=== PATIENT | female | born 1955 | race Caucasian/White ===

== ENCOUNTER 2017-01-16 22:51 | Inpatient (IN) | payer OTHER ==
[~2017-01-16] VITALS: Ht 170.2 cm; Wt 103.7 kg
[2017-01-16 22:58] VITALS: BP 104/76; PULSE 130; RESP 20; TEMP 98.7; O2SAT 98
[2017-01-16] MEDS ORDERED: SODIUM CHLOR 0.9% 1000 ML INJ 1,000 ML IV SCH (23:29)
[2017-01-16] MEDS ORDERED: SODIUM CHLOR 0.9% 1000 ML INJ 1,000 ML IV ONE (23:30)
[2017-01-16] MEDS ORDERED: ONDANSETRON HCL 4 MG/2 ML VIAL IV PUSH ONE (23:30)
[2017-01-16] MEDS ORDERED: ONDANSETRON HCL 4 MG/2 ML VIAL IVP ONE (23:30)
[2017-01-16] MEDS ORDERED: SODIUM CHLORIDE 0.9% FLUSH 5 ML FLUSH IVF PRN (23:30)
--- NOTE | 2017-01-16 23:38 | PD ---
HPI Chief Complaint: Abdominal Pain Time Seen by Provider: 23:29 Travel History International Travel<30 days: No Contact w/Intl Traveler<30days: No Traveled to known affect area: No History of Present Illness HPI 61-year-old female presents to the emergency department by private transportation the care of her spouse for complaint of progressively worsening severe abdominal pain since 6 PM. Patient states abdominal pain sudden onset. Patient states pain does radiate around to the back. Patient's had nausea without vomiting. Patient's had chills without fever. Patient denies any chest pain or recent respiratory illness. No cough or congestion; patient does note shortness of breath associated with pain in activity. Patient is status post cholecystectomy and hysterectomy. Patient takes no prescription medications on a regular basis; does take ibuprofen daily. No hematemesis no coffee-ground emesis no melena or hematochezia. Patient denies any dysuria frequency urgency or hematuria. No syncope or near syncope. Patient denies personal history of CAD hypertension dyslipidemia diabetes peptic ulcer disease aortic disease kidney stones or similar abdominal pain. Patient does have colonoscopies every 3 months due to frequent polyposis/familial polyposis status post for precancerous. Patient is also "has a steel plate in her head" from previous craniotomy. PFSH Past Medical History Narrative Medical Familial polyposis colonoscopy polypectomy Hysterectomy cholecystectomy craniotomy-padget's; no tobacco use and alcohol use; nursing notes reviewed Diminished Hearing: No Gastrointestinal Disorders: Yes (COLON POLYPS) Tetanus Vaccination: Unknown Influenza Vaccination: Yes ?: Not Past Surgical History Cholecystectomy: Yes Gynecologic Surgery: Yes (HYSTERECTOMY) Hysterectomy: Yes Social History Alcohol Use: No Tobacco Use: No Substance Use: No Allergies-Medications (Allergen,Severity, Reaction): Coded Allergies: No Known Allergies (Unverified , 01/16/17) Reported Meds & Prescriptions Reported Meds & Active Scripts Active No Active Prescriptions or Reported Medications Narrative Medication Ibuprofen Review of Systems Except as stated in HPI: all other systems reviewed are Neg General / Constitutional: Positive: Chills, No: Fever HENT: No: Congestion Cardiovascular: Positive: Diaphoresis, No: Chest Pain or Discomfort Respiratory: No: Shortness of Breath Gastrointestinal: Positive: Nausea, Abdominal Pain, No: Vomiting, Diarrhea, Hematemesis, Hematochezia Genitourinary: No: Dysuria, Flank Pain Musculoskeletal: No: Myalgias, Arthralgias Skin: No Rash Neurologic: No: Weakness (tenderness) Psychiatric: No: Anxiety Endocrine: No: Heat Intolerance Hematologic/Lymphatic: No: Easy Bruising Physical Exam Narrative GENERAL: Well-developed ill-appearing female in no respiratory distress diaphoretic without pallor SKIN: Warm and diaphoretic. HEAD: Atraumatic. Normocephalic. EYES: Pupils equal and round. No scleral icterus. No injection or drainage. ENT: No nasal bleeding or discharge. Mucous membranes pink and moist. NECK: Trachea midline. No JVD. CARDIOVASCULAR: Regular rate and rhythm. RESPIRATORY: No accessory muscle use. Clear to auscultation. Breath sounds equal bilaterally. GASTROINTESTINAL: Abdomen soft, diffusely tender without guarding or rebound, nondistended. Hepatic and splenic margins not palpable. No palpable pulsatile mass. MUSCULOSKELETAL: Extremities without clubbing, cyanosis, or edema. No obvious deformities. Bilateral radial and dorsalis pedis pulses bounding and 2+ NEUROLOGICAL: Awake and alert. No obvious cranial nerve deficits. Motor grossly within normal limits. Five out of 5 muscle strength in the arms and legs. Normal speech. PSYCHIATRIC: Appropriate mood and affect; insight and judgment normal. Data Data Last Documented VS Vital Signs Date Time Temp Pulse Resp B/P Pulse Ox O2 Delivery O2 Flow Rate FiO2 01/17/17 01:17 20 01/16/17 23:59 105 125/60 98 01/16/17 22:58 98.7 Orders Complete Blood Count With Diff (01/16/17 23:29) Comprehensive Metabolic Panel (01/16/17 23:29) Lipase (01/16/17 23:29) Lactic Acid (01/16/17 23:29) Prothrombin Time / Inr (Pt) (01/16/17 23:29) Act Partial Throm Time (Ptt) (01/16/17 23:29) Urinalysis - C+S If Indicated (01/16/17 23:29) Iv Access Insert/Monitor (01/16/17 23:29) Ecg Monitoring (01/16/17 23:29) Oximetry (01/16/17 23:29) Ondansetron Inj (Zofran Inj) (01/16/17 23:30) Sodium Chlor 0.9% 1000 Ml Inj (Ns 1000 M (01/16/17 23:29) Sodium Chloride 0.9% Flush (Ns Flush) (01/16/17 23:30) Electrocardiogram (01/16/17 23:29) Chest, Single Ap (01/16/17 23:29) Sodium Chlor 0.9% 1000 Ml Inj (Ns 1000 M (01/16/17 23:30) Ondansetron Inj (Zofran Inj) (01/16/17 23:30) Type And Screen (01/16/17 23:29) Troponin I (01/16/17 23:29) Ckmb (Isoenzyme) Profile (01/16/17 23:29) Blood Culture (01/16/17 23:29) Ct Abd/Pel W/O Iv Contrast (01/16/17 ) Morphine Inj (Morphine Inj) (01/16/17 23:45) Morphine Inj (Morphine Inj) (01/16/17 23:45) Piperacil-Tazo 4.5 Gm Premix (Zosyn 4.5 (01/16/17 23:45) Ondansetron Inj (Zofran Inj) (01/17/17 00:15) CKMB (01/16/17 23:30) CKMB% (01/16/17 23:30) Insert Temp Sensing Garcia Cath (01/17/17 00:35) Sodium Chlor 0.9% 1000 Ml Inj (Ns 1000 M (01/17/17 01:15) NPO (01/17/17 01:12) Admit Order (Ed Use Only) (01/17/17 ) ^ Saline Lock (01/17/17 01:13) Resp Oxygen Rafael C Titrat 1-4 L (01/17/17 ) ^ Notify Dr: Other (01/17/17 01:13) Sodium Chloride 0.9% Flush (Ns Flush) (01/17/17 09:00) Sodium Chloride 0.9% Flush (Ns Flush) (01/17/17 01:15) Piperacil-Tazo 3.375 Gm Premix (Zosyn 3. (01/17/17 06:00) ^ For Further Orders (01/17/17 01:13) Diet Npo (01/17/17 Breakfast) Labs Laboratory Tests Test 01/16/17 01/17/17 23:30 00:50 White Blood Count 10.2 TH/MM3 Red Blood Count 5.28 MIL/MM3 Hemoglobin 13.8 GM/DL Hematocrit 43.4 % Mean Corpuscular Volume 82.1 FL Mean Corpuscular Hemoglobin 26.2 PG Mean Corpuscular Hemoglobin 31.9 % Concent Red Cell Distribution Width 14.5 % Platelet Count 343 TH/MM3 Mean Platelet Volume 7.8 FL Neutrophils (%) (Auto) 73.0 % Lymphocytes (%) (Auto) 17.0 % Monocytes (%) (Auto) 8.9 % Eosinophils (%) (Auto) 0.2 % Basophils (%) (Auto) 0.9 % Neutrophils # (Auto) 7.5 TH/MM3 Lymphocytes # (Auto) 1.7 TH/MM3 Monocytes # (Auto) 0.9 TH/MM3 Eosinophils # (Auto) 0.0 TH/MM3 Basophils # (Auto) 0.1 TH/MM3 CBC Comment DIFF FINAL Differential Comment Prothrombin Time 11.3 SEC Prothromb Time International 1.0 RATIO Ratio Activated Partial 28.1 SEC Thromboplast Time Sodium Level 143 MEQ/L Potassium Level 3.8 MEQ/L Chloride Level 107 MEQ/L Carbon Dioxide Level 25.4 MEQ/L Anion Gap 11 MEQ/L Blood Urea Nitrogen 15 MG/DL Creatinine 0.77 MG/DL Estimat Glomerular Filtration 77 ML/MIN Rate Random Glucose 124 MG/DL Lactic Acid Level 1.6 mmol/L Calcium Level 8.8 MG/DL Total Bilirubin 1.0 MG/DL Aspartate Amino Transf 21 U/L (AST/SGOT) Alanine Aminotransferase 44 U/L (ALT/SGPT) Alkaline Phosphatase 77 U/L Total Creatine Kinase 128 U/L Creatine Kinase MB LESS THAN 0.5 NG/ML Troponin I LESS THAN 0.02 NG/ML Total Protein 8.1 GM/DL Albumin 3.7 GM/DL Lipase 91 U/L Blood Type O POSITIVE Antibody Screen NEGATIVE Blood Bank Comment Urine Color YELLOW Urine Turbidity CLEAR Urine pH 6.0 Urine Specific [place] 1.017 Urine Protein 30 mg/dL Urine Glucose (UA) NEG mg/dL Urine Ketones NEG mg/dL Urine Occult Blood NEG Urine Nitrite NEG Urine Bilirubin NEG Urine Leukocyte Esterase NEG Urine WBC 0-2 /hpf Urine Squamous Epithelial 0-5 /hpf Cells Urine Hyaline Casts 3-5 /lpf Urine Fine Granular Casts 3-5 /lpf Urine Mucus FEW /lpf Microscopic Urinalysis Comment CULT NOT INDICATED MDM Medical Decision Making Medical Screen Exam Complete: Yes Emergency Medical Condition: Yes Medical Record Reviewed: Yes Interpretation(s) EKG sinus tachycardia rate [address] elevation or injury pattern change or ectopy noted Vital Signs Date Time Temp Pulse Resp B/P Pulse Ox O2 Delivery O2 Flow Rate FiO2 01/17/17 00:12 20 01/16/17 23:59 105 20 125/60 98 01/16/17 22:58 98.7 130 20 104/76 98 CBC & BMP Diagram 01/16/17 23:30 Last Impressions Chest X-Ray 01/16/17 2329 Signed Impressions: Service Date/Time: Monday, January 16, 2017 23:40 - CONCLUSION: No acute disease. Yonny Andujar MD Abdomen/Pelvis CT 01/16/17 0000 Signed Impressions: Service Date/Time: Monday, January 16, 2017 23:45 - CONCLUSION: 1. Suspected appendicitis with a distended thickened appendix with internal calcification and surrounding inflammatory change and inflammatory change extending to the right paracolic gutter region and anterior mesentery with a mild amount of free fluid present. 2. Several small pulmonary nodules. These are nonspecific. 3. 1.7 cm hypodense mass in the liver likely related to a cyst or hemangioma statistically. Yonny Andujar MD Lactic acid: 1.6; repeat lactic acid: 2.9 Differential Diagnosis Abdominal pain, perforated viscus, ruptured abdominal aortic aneurysm, ischemic colitis, bowel obstruction, sepsis, ACS, [place] Narrative Course IV access obtained specimens collected and sent for resulting; stat CT abdomen and pelvis ordered Normal saline 2 L bolus ordered along with morphine sulfate 4 mg IV Zofran 4 mg IV; blood cultures obtained lactic acid obtained; in view of complaint of chills presumptive IV antibiotic administered @ 12:[address] --pain now 4/10 mild nausea; 1 LNS bolus infused At 1:[address] abdomen and pelvis resulted consistent with acute appendicitis with stranding and scant free fluid; this study is discussed with the on-call surgeon who requests patient be continued on IV Zosyn transferred to [facility] as she will need surgical intervention in the morning; discussed admission to ICU surgeon requests an additional liter bolus of normal saline admit to M/S. @ 3:25 AM increased abdominal tenderness with guarding and rebound and fever T: 101.6F with increasing second lactic acid; will upgrade admission to ICU Critical Care Narrative Aggregate critical care time was 40 minutes. Time to perform other separately billable procedures was not included in the critical care time. My time did not include minutes spent treating any other patients simultaneously or on activities that did not directly contribute to the patient's treatment. The services I provided to this patient were to treat and/or prevent clinically significant deterioration that could result in: Septic shock, cardiogenic shock , I provided critical care services requiring my management, as noted below: Chart data review, documentation time, medication orders and management, vital sign assessments/reviewing monitor data, ordering and reviewing lab tests, ordering and interpreting/reviewing x-rays and diagnostic studies, care of the patient and discussion of the patient with the admitting physicians. Sepsis Criteria SIRS Criteria (2 or more): Temp > 100.9 or < 96.8, Heart rate over 90 Sepsis Criteria (SIRS+source): Infect source susp/known Severe Sepsis (+one): Lactate >2 Physician Communication Physician Communication case discussed with DR Mcgill --admit to his service npo continue zosyn q 6 hours; case re-discussed with general surgeon aware --remains tachycardic HR 114 -122, bp 108/81 w elevated lactic acid; discussed with insurance manager Dr Braun Diagnosis Primary Impression: Appendicitis, acute Qualified Code: K35.2 - Acute appendicitis with generalized peritonitis Additional Impression: Sepsis Admitting Information Admitting Physician Requests: Admit Scripts No Active Prescriptions or Reported Meds Milana Silverman MD Jan 16, 2017 23:38
[2017-01-16] MEDS ORDERED: PIPERACIL-TAZO 4.5 GM PREMIX 100 ML IV ONE (23:45)
[2017-01-16] MEDS ORDERED: MORPHINE SULFATE 4 MG/ML INJ IV PUSH ONE ×2 (23:45)
[2017-01-16 23:59] VITALS: BP 125/60; PULSE 105; RESP 20; O2SAT 98
[2017-01-17] VITALS (16 sets, daily range): BP systolic 111–138; BP diastolic 51–76; PULSE 82–130; RESP 19–24; TEMP 98.3–101.6; O2SAT 95–99
[2017-01-17 00:14] LABS: CHLORIDE 107 MEQ/L (98-107); POTASSIUM 3.8 MEQ/L (3.5-5.1); SODIUM (NA) 143 MEQ/L (136-145)
[2017-01-17 00:15] LABS: AUTOMATED NEUTROPHIL # 7.5 TH/MM3 (1.8-7.7); BASOPHIL # 0.1 TH/MM3 (0-0.2); BASOPHIL % 0.9 % (0.0-2.0); EOSINOPHIL % 0.2 % (0.0-4.0); HEMATOCRIT 43.4 % (35.0-46.0); HEMO FLAGS DIFF FINAL; LYMPHOCYTE # 1.7 TH/MM3 (1.0-4.8); MEAN CELL VOLUME 82.1 FL (80.0-100.0); MEAN CORPUSCULAR HEMOGLOBIN 26.2 PG (27.0-34.0); MEAN CORPUSCULAR HGB CONC 31.9 % (32.0-36.0); MONO % 8.9 % (0.0-8.0); PLATELET COUNT 343 TH/MM3 (150-450); RED BLOOD COUNT 5.28 MIL/MM3 (4.00-5.30); RED CELL DISTRIBUTION WIDTH 14.5 % (11.6-17.2); WHITE BLOOD COUNT 10.2 TH/MM3 (4.0-11.0)
[2017-01-17] MEDS ORDERED: ONDANSETRON HCL 4 MG/2 ML VIAL IV PUSH ONE ×2 (00:15→10:28)
[2017-01-17 00:18] LABS: ANION GAP 11 MEQ/L (5-15); BICARBONATE 25.4 MEQ/L (21.0-32.0); BLOOD UREA NITROGEN 15 MG/DL (7-18)
[2017-01-17 00:21] LABS: ALT (GPT) 44 U/L (10-53); AST (GOT) 21 U/L (15-37); GLOMERULAR FILTRATION RATE 77 ML/MIN (>89)
[2017-01-17 00:23] LABS: APTT (PATIENT) 28.1 SEC (24.3-30.1); PROTHROMBIN TIME - PATIENT 11.3 SEC (9.8-11.6)
[2017-01-17 00:24] LABS: ALKALINE PHOSPHATASE 77 U/L (45-117); CREATINE KINASE 128 U/L (26-192)
[2017-01-17 00:36] LABS: CKMB LESS THAN 0.5 NG/ML (0.5-3.6)
--- NOTE | 2017-01-17 00:46 | RADHPO ---
EXAM DATE/TIME: 01/16/2017 23:45 [facility] COMPARISON: No previous studies available for comparison. INDICATIONS : Abdominal pain. Nausea. ORAL CONTRAST: No oral contrast ingested. RADIATION DOSE: 22.37 CTDIvol (mGy) MEDICAL HISTORY : None SURGICAL HISTORY : Cholecystectomy. Hysterectomy. ENCOUNTER: Initial ACUITY: 1 day PAIN SCALE: 10/10 LOCATION: Bilateral Abdomen and pelvis. TECHNIQUE: Volumetric scanning of the abdomen and pelvis was performed. Using automated exposure control and ad justment of the mA and/or kV according to patient size, radiation dose was kept as low as reasonably achievable to obtain optimal diagnostic quality images. FINDINGS: LOWER LUNGS: There are several small less than 5 mm pulmonary nodules seen. LIVER: There is a 1.7 cm hypodensity in the anterior aspect of the liver. Statistically, this likely represe nts a cyst or hemangioma. The patient is status post cholecystectomy. SPLEEN: Normal size without lesion. PANCREAS: Within normal limits. KIDNEYS: Normal in size and shape. There is no mass, stone, or hydronephrosis. ADRENAL GLANDS: Within normal limits. VASCULAR: There is no aortic aneurysm. BOWEL/MESENTERY: There is a dilated tubular structure seen at the inferior aspect of the cecum with internal calcifica tions likely into an enlarged appendix with surrounding inflammatory change. There is inflammatory ch rosalva extending into the right paracolic gutter and into the anterior mesentery. There is a mild amoun t of free fluid seen in the cul-de-sac. ABDOMINAL WALL: Within normal limits. RETROPERITONEUM: There is no lymphadenopathy. BLADDER: No wall thickening or mass. REPRODUCTIVE: Within normal limits. INGUINAL: There is no lymphadenopathy or hernia. MUSCULOSKELETAL: Within normal limits for patient age. CONCLUSION: 1. Suspected appendicitis with a distended thickened appendix with internal calcification and surroun ding inflammatory change and inflammatory change extending to the right paracolic gutter region and a nterior mesentery with a mild amount of free fluid present. 2. Several small pulmonary nodules. These are nonspecific. 3. 1.7 cm hypodense mass in the liver likely related to a cyst or hemangioma statistically. Yonny Andujar MD on January 17, 2017 at 0:39 Board Certified Radiologist. This report was verified electronically.
--- NOTE | 2017-01-17 00:46 | RADHPO ---
EXAM DATE/TIME: 01/16/2017 23:40 [facility] COMPARISON: No previous studies available for comparison. INDICATIONS : Chest and abdominal pain. MEDICAL HISTORY : None. SURGICAL HISTORY : None. ENCOUNTER: Initial ACUITY: 1 day PAIN SCORE: 10/10 LOCATION: Bilateral lower chest FINDINGS: A single view of the chest demonstrates the lungs to be symmetrically aerated without evidence of mas s, infiltrate or effusion. The cardiomediastinal contours are unremarkable. Osseous structures are intact. CONCLUSION: No acute disease. Yonny Andujar MD on January 17, 2017 at 0:44 Board Certified Radiologist. This report was verified electronically.
[2017-01-17 01:03] LABS: BLOOD, URINE NEG (NEG); GLUCOSE,URINE NEG (NEG); KETONE, URINE NEG (NEG); NITRITE,URINE NEG (NEG)
[2017-01-17 01:10] LABS: URINE COLOR YELLOW (YELLW/STRAW)
[2017-01-17 01:11] LABS: MUCUS URINE FEW /lpf (OCC)
[2017-01-17 01:12] LABS: SQUAMOUS EPITHELIAL CELL URINE 0-5 /hpf (0-5); WBC, URINE 0-2 /hpf (0-5)
[2017-01-17 01:14] LABS: COMMENT (UR) CULT NOT INDICATED; CULTURE IF INDICATED CULT NOT INDICATED
[2017-01-17] MEDS ORDERED: SODIUM CHLOR 0.9% 1000 ML INJ 1,000 ML IV ONE ×2 (01:15→03:30)
[2017-01-17] MEDS ORDERED: SODIUM CHLORIDE 0.9% FLUSH 5 ML FLUSH IVF PRN ×2 (01:15→14:00)
[2017-01-17] MEDS ORDERED: MORPHINE SULFATE 4 MG/ML INJ IV PUSH ONE (02:00)
[2017-01-17] MEDS ORDERED: METOCLOPRAMIDE HCL 10 MG/2 ML VIAL IV PUSH ONE (02:00)
[2017-01-17] MEDS ORDERED: ACETAMINOPHEN 650 MG SUPP RECTAL ONE (03:30)
[2017-01-17] MEDS: PIPERACIL-TAZO 3.375 GM PREMIX 50 ML IV SCH ×4 (06:28→23:19)
[2017-01-17] MEDS ORDERED: SODIUM CHLORIDE 0.9% FLUSH 5 ML FLUSH IVF SCH (09:00)
[2017-01-17] MEDS ORDERED: KETOROLAC TROMETHAMINE 60 MG/2 ML (IM) VIAL IM ONE (10:28)
[2017-01-17] MEDS ORDERED: ePHEDrine/NS 25 MG/5 ML SYR IV ONE (10:28)
[2017-01-17] MEDS ORDERED: NEOSTIGMINE 3 MG/3 ML SYR IV ONE (10:28)
[2017-01-17] MEDS ORDERED: LACTATED RINGER'S 1000 ML INJ 1,000 ML IV ONE (10:28)
[2017-01-17] MEDS ORDERED: PROPOFOL 200 MG/20 ML AMP IV ONE (10:28)
[2017-01-17] MEDS ORDERED: PHENYLEPH/NS 1000 MCG/10 ML SYR IV ONE (10:28)
[2017-01-17] MEDS ORDERED: BUPIVACAINE/EPINEPHRINE 0.25% PF 10 ML VIAL ONE (10:53)
[2017-01-17] MEDS ORDERED: FAMOTIDINE 20 MG/2 ML VIAL ONE (12:11)
[2017-01-17] MEDS ORDERED: DEXAMETHASONE SOD PHOS 4 MG/ML VIAL ONE (12:11)
[2017-01-17] MEDS ORDERED: METOCLOPRAMIDE HCL 10 MG/2 ML VIAL ONE (12:11)
[2017-01-17] MEDS ORDERED: MIDAZOLAM HCL 2 MG/2 ML VIAL ONE (12:11)
--- NOTE | 2017-01-17 12:12 | MH ---
cc: MARTHA BECKER M.D. DATE OF ADMISSION: 01/17/2017 REASON FOR ADMISSION Acute appendicitis. HISTORY OF PRESENT ILLNESS The patient is a 61-year-old female who had progressively worsening abdominal pain since yesterday evening. This was sudden onset and the patient had nausea without emesis. She has had no change in her bowel habits. She is post cholecystectomy and hysterectomy. She takes ibuprofen daily. PAST MEDICAL HISTORY Past medical history significant for: 1. Colonoscopy every 3 months for polypectomy. 2. The patient has history of familial colon polyps. PAST SURGICAL HISTORY Past surgeries include: 1. Craniotomy for Paget's disease. 2. Cholecystectomy at [facility]. 3. Hysterectomy in the past. SOCIAL HISTORY The patient does not drink, smoke or use other medications. ALLERGIES She has no known allergies. MEDICATIONS The only medication she takes is Ibuprofen. REVIEW OF SYSTEMS Except as stated in HPI are negative. GENERAL: She is positive for chills but no fever. HEENT: No congestion. No diplopia. No sequelae from her craniotomy. CARDIOVASCULAR: Significant for diaphoresis. No chest pain or discomfort. No palpitations. RESPIRATORY: No shortness of breath. GI: Significant for nausea but no emesis. No history of hematochezia or hematemesis. : No dysuria or hematuria. MUSCULOSKELETAL: No myalgias or arthralgias. NEUROLOGIC: No weakness or dizziness. PSYCHIATRIC: No anxiety. ENDOCRINE: No heat intolerance. HEMATOLOGIC: No easy bruising. PHYSICAL EXAMINATION GENERAL: Physical exam reveals an obese female who is uncomfortable. VITAL SIGNS: BP 112/58, pulse 118, respirations 20, temperature 98.3, 96% saturation on 2 liters nasal cannula. HEENT: Sclerae anicteric. Pupils are reactive. CHEST: Clear to auscultation. CARDIAC: Cardiac exam reveals regular rate and rhythm. ABDOMEN: Abdomen is soft. There are well-healed laparoscopy scars. The patient is tender in both the left and right lower quadrants with some guarding. There are no hernias noted. There is a well-healed Pfannenstiel incision. Pulses are present. NEUROLOGIC: Exam is nonfocal. LABORATORY DATA Laboratory values demonstrate WBCs of 10.2, platelets are 343,000. Chemistries are essentially normal except for an elevated lactate level and a glucose of 124. Lipase is normal. IMAGING STUDIES CT scan demonstrates findings consistent with acute appendicitis. There is calcification within the enlarged appendix with a dilated tubular structure noted and surrounding inflammatory change. There is some inflammatory change extending into the right paracolic gutter. There is a trace amount of fluid in the cul-de-sac. ASSESSMENT Acute appendicitis without perforation at this time. I have discussed with the patient and her family the need for operative intervention as she has received antibiotics and continues to have significant symptoms. We did briefly discuss nonoperative management but I would not recommend it given her continued tachycardia and significant pain. I have discussed risks of surgery including but not limited to bleeding, infection, fistula formation, abscess formation requiring drainage and adhesion formation. I have discussed remedies, consequences, alternatives to convalescence. They vocalize understanding and agree to proceed. They realize there may be a small chance that an open procedure may be required with the risks associated with an open procedure. MD MAURICE Bowden/TLL /11:48 AM /11:59 AM
[2017-01-17] MEDS ORDERED: ACETAMINOPHEN 1000 MG/100 ML VIAL IV ONE (12:57)
--- NOTE | 2017-01-17 13:55 | HHI.PR ---
cc: Ced Mcgill MD Immediate Post Op Note Procedure Date: Jan 17, 2017 Pre Op Diagnosis: Acute appendicitis Post Op Diagnosis: Gangrenous appendicitis Surgeon: Ced Mcgill Chip Washer(s): Artur Herzog CFA Procedure: Laparoscopic appendectomy Findings: Gangrenous appendicitis without rupture Complications: None Specimen(s) removed: Appendix to pathology Estimated blood loss: 50 ml Anesthesia: General Drains: CANDIDA IVF (1500 ml) Patient to: PACU Patient Condition: Good Date/Time of Procedure: SEE SURGICAL CARE RECORD Ced Mcgill MD Jan 17, 2017 13:55
[2017-01-17] MEDS ORDERED: Post-op Orders (for Pharmacy) MISC XX ONE (14:00)
[2017-01-17] MEDS ORDERED: ACETAMINOPHEN/HYDROcodone 325 MG/7.5 MG TAB PO PRN (14:00)
[2017-01-17] MEDS ORDERED: diphenhydrAMINE HCL 50 MG/ML VIAL IV PRN (14:00)
[2017-01-17] MEDS ORDERED: MORPHINE SULFATE 8 MG/ML INJ IV PUSH PRN (14:00)
[2017-01-17] MEDS ORDERED: fentaNYL CITRATE 250 MCG/5 ML AMP ONE (14:08)
[2017-01-17] MEDS: D5-NS + KCL 20 MEQ INJ 1,000 ML IV SCH ×2 (14:26→21:07)
[2017-01-17] MEDS ORDERED: *RESP: ALBUTEROL 2.5 MG/3 ML NEB (PRN) PERIprocedural Use ONLY NEB ONE (14:31)
[2017-01-17] MEDS ORDERED: METOCLOPRAMIDE HCL 10 MG/2 ML VIAL IV PRN (15:00)
[2017-01-17] MEDS ORDERED: ONDANSETRON HCL 4 MG/2 ML VIAL IV PRN (15:00)
[2017-01-17] MEDS: PANTOPRAZOLE SOD 40 MG DELAYED RELEASE TAB PO SCH (15:39)
[2017-01-17] MEDS: KETOROLAC TROMETHAMINE 30 MG/ML (IVP) VIAL IVP PRN (18:16)
[2017-01-17] MEDS: SODIUM CHLORIDE 0.9% FLUSH 5 ML FLUSH IVF SCH (19:51)
--- NOTE | 2017-01-17 22:05 | EKG ---
Date Performed: 01/17/2017 Time Performed: 00:02:46 PTAGE: 61 years EKG: Sinus tachycardia. Normal ECG except for rate NO PREVIOUS TRACING DOCTOR: Linda Sweeney Interpretating Date/Time 01/17/2017 22:04:20
[2017-01-18] VITALS (11 sets, daily range): BP systolic 98–134; BP diastolic 52–76; PULSE 89–117; RESP 14–21; TEMP 98.7–100.5; O2SAT 95–99
[2017-01-18 04:40] LABS: AUTOMATED NEUTROPHIL # 6.7 TH/MM3 (1.8-7.7); BASOPHIL % 0.1 % (0.0-2.0); HEMATOCRIT 34.3 % (35.0-46.0); HEMO FLAGS DIFF FINAL; LYMPH % 9.9 % (9.0-44.0); LYMPHOCYTE # 0.8 TH/MM3 (1.0-4.8); MEAN CELL VOLUME 82.1 FL (80.0-100.0); MEAN CORPUSCULAR HEMOGLOBIN 27.4 PG (27.0-34.0); MEAN CORPUSCULAR HGB CONC 33.4 % (32.0-36.0); MONO % 8.9 % (0.0-8.0); NEUT % 81.1 % (16.0-70.0); PLATELET COUNT 184 TH/MM3 (150-450); RED BLOOD COUNT 4.18 MIL/MM3 (4.00-5.30); RED CELL DISTRIBUTION WIDTH 15.1 % (11.6-17.2); WHITE BLOOD COUNT 8.3 TH/MM3 (4.0-11.0)
[2017-01-18] MEDS: PIPERACIL-TAZO 3.375 GM PREMIX 50 ML IV SCH ×4 (04:52→22:16)
[2017-01-18] MEDS: D5-NS + KCL 20 MEQ INJ 1,000 ML IV SCH ×3 (04:52→22:16)
[2017-01-18 05:03] LABS: BICARBONATE 23.5 MEQ/L (21.0-32.0); POTASSIUM 3.5 MEQ/L (3.5-5.1)
[2017-01-18] MEDS: KETOROLAC TROMETHAMINE 30 MG/ML (IVP) VIAL IVP PRN ×2 (07:13→22:18)
[2017-01-18] MEDS: SODIUM CHLORIDE 0.9% FLUSH 5 ML FLUSH IVF SCH ×2 (07:13→20:21)
[2017-01-18] MEDS: ACETAMINOPHEN/HYDROcodone 325 MG/7.5 MG TAB PO PRN ×2 (10:36→15:59)
[2017-01-18] MEDS: ENOXAPARIN SODIUM 40 MG/0.4 ML SYRINGE SQ SCH (12:46)
--- NOTE | 2017-01-18 13:50 | HHI.PR ---
Subjective Subjective Notes Up to chair Reports she passed gas Wants to try something more to eat Objective Vitals/I&O Vital Signs Date Time Temp Pulse Resp B/P Pulse Ox O2 Delivery O2 Flow Rate FiO2 01/18/17 12:00 113 01/18/17 12:00 98.7 21 98/54 97 01/18/17 10:42 21 01/18/17 07:00 Nasal Cannula 4.00 Labs Laboratory Tests Test 01/18/17 03:38 White Blood Count 8.3 Red Blood Count 4.18 Hemoglobin 11.5 Hematocrit 34.3 Mean Corpuscular Volume 82.1 Mean Corpuscular Hemoglobin 27.4 Mean Corpuscular Hemoglobin 33.4 Concent Red Cell Distribution Width 15.1 Platelet Count 184 Mean Platelet Volume 7.7 Neutrophils (%) (Auto) 81.1 Lymphocytes (%) (Auto) 9.9 Monocytes (%) (Auto) 8.9 Eosinophils (%) (Auto) 0.0 Basophils (%) (Auto) 0.1 Neutrophils # (Auto) 6.7 Lymphocytes # (Auto) 0.8 Monocytes # (Auto) 0.7 Eosinophils # (Auto) 0.0 Basophils # (Auto) 0.0 CBC Comment DIFF FINAL Differential Comment Sodium Level 144 Potassium Level 3.5 Chloride Level 114 Carbon Dioxide Level 23.5 Anion Gap 7 Blood Urea Nitrogen 12 Creatinine 0.55 Estimat Glomerular Filtration 113 Rate Random Glucose 117 Calcium Level 8.0 Date/Time Procedure Status Source Growth 01/17/17 13:27 Gram Stain - Final Resulted Fluid Peritoneal Fluid 01/17/17 13:27 Body Fluid Culture Resulted Fluid Peritoneal Fluid Pending 01/17/17 13:27 Fungal Smear - Final Resulted Fluid Peritoneal Fluid NO FUNGAL ELEMENTS SEEN. 01/17/17 13:27 Fungal Culture Resulted Fluid Peritoneal Fluid Pending 01/17/17 13:27 Acid Fast Stain - Final Resulted Fluid Peritoneal Fluid NO ACID FAST BACILLI SEEN 01/17/17 13:27 Mycobacterial Culture Resulted Fluid Peritoneal Fluid Pending 01/17/17 00:30 Aerobic Blood Culture - Preliminary Resulted Blood Peripheral NO GROWTH IN 1 DAY 01/17/17 00:30 Anaerobic Blood Culture - Preliminary Resulted Blood Peripheral Cardiovascular: Regular Lungs: Clear Abdomen: Other (lap sites c/d/i; soft; drain in place with SS fluid ) Extremities: No edema A/P Assessment and Plan 61 year old female POD1 lap appy; gangrenous -Advance to full liquids -Continue Zosyn -DC Garcia -OOB and mobilize -Continue CANDIDA to bulb suction -Transfer to 7N -Discussed with RN Myesha and RN Ann at bedside along with daughter who is also an RN Attending Note - Dr. Mcgill Abdomen benign Steristrips with minimal drainage on umbilicus; no erythema Transition to PO antibiotics tomorrow if no fevers Advance diet tomorrow if no nausea or distention. The exam, history, and the medical decision-making described in the above note were completed with the assistance of the mid-level provider. I reviewed and agree with the findings presented. I attest that I had a [id number] encounter with the patient on the same day, and personally performed and documented my assessment and findings in the medical record. Debbie Hayden Jan 18, 2017 13:50 Ced Mcgill MD Jan 18, 2017 18:01
[2017-01-18] MEDS: PANTOPRAZOLE SOD 40 MG DELAYED RELEASE TAB PO SCH (13:52)
[2017-01-19] VITALS (8 sets, daily range): BP systolic 116–136; BP diastolic 57–73; PULSE 16–100; RESP 14–20; TEMP 96.8–99.2; O2SAT 95–98
[2017-01-19] MEDS: ACETAMINOPHEN/HYDROcodone 325 MG/7.5 MG TAB PO PRN ×2 (05:16→11:39)
[2017-01-19] MEDS: PIPERACIL-TAZO 3.375 GM PREMIX 50 ML IV SCH (05:16)
[2017-01-19] MEDS: D5-NS + KCL 20 MEQ INJ 1,000 ML IV SCH (05:17)
[2017-01-19] MEDS: KETOROLAC TROMETHAMINE 30 MG/ML (IVP) VIAL IVP PRN ×2 (05:19→20:28)
[2017-01-19] MEDS: SODIUM CHLORIDE 0.9% FLUSH 5 ML FLUSH IVF SCH ×2 (11:39→20:24)
[2017-01-19] MEDS: ENOXAPARIN SODIUM 40 MG/0.4 ML SYRINGE SQ SCH (11:39)
--- NOTE | 2017-01-19 12:23 | HHI.PR ---
Subjective Subjective Notes Up to chair Has been OOB and walked in hallway several times today Daughter at bedside Objective Vitals/I&O Vital Signs Date Time Temp Pulse Resp B/P Pulse Ox O2 Delivery O2 Flow Rate FiO2 01/19/17 12:00 96.8 93 16 116/57 01/19/17 08:00 98 01/18/17 13:52 Room Air 01/18/17 10:42 21 01/18/17 07:00 4.00 Labs Date/Time Procedure Status Source Growth 01/17/17 13:27 Gram Stain - Final Complete Fluid Peritoneal Fluid 01/17/17 13:27 Body Fluid Culture - Final Complete Pseudomonas Aeruginosa 01/17/17 13:27 Fungal Smear - Final Resulted Fluid Peritoneal Fluid NO FUNGAL ELEMENTS SEEN. 01/17/17 13:27 Fungal Culture Resulted Fluid Peritoneal Fluid Pending 01/17/17 13:27 Acid Fast Stain - Final Resulted Fluid Peritoneal Fluid NO ACID FAST BACILLI SEEN 01/17/17 13:27 Mycobacterial Culture Resulted Fluid Peritoneal Fluid Pending 01/17/17 00:30 Aerobic Blood Culture - Preliminary Resulted Blood Peripheral NO GROWTH IN 2 DAYS 01/17/17 00:30 Anaerobic Blood Culture - Preliminary Resulted Blood Peripheral Cardiovascular: Regular Lungs: Clear Abdomen: Non-distended, Non-tender, Other (drain in place with drainage--- mildly cloudy fluid; lap sites c/d/i ) Extremities: No edema A/P Assessment and Plan 61 year old female POD2 lap appy; gangrenous -Advance to regular diet -Transition to Augmentin -OOB and mobilize -Continue CANDIDA to bulb suction -Discussed with daughter at bedside who is also an RN Attending Note - Dr. Mcgill Abdomen soft, nontender; umbilicus with minimal redness; steristrips dry Stable for D/C tomorrow F/u my office later in week. Needs to stay off work until office visit; she will take care of drain herself. The exam, history, and the medical decision-making described in the above note were completed with the assistance of the mid-level provider. I reviewed and agree with the findings presented. I attest that I had a [id number] encounter with the patient on the same day, and personally performed and documented my assessment and findings in the medical record. Debbie Hayden Jan 19, 2017 12:23 Ced Mcgill MD Jan 19, 2017 19:10
[2017-01-19] MEDS ORDERED: AMOX875T2 PO (14:11)
[2017-01-19] MEDS: PANTOPRAZOLE SOD 40 MG DELAYED RELEASE TAB PO SCH (15:00)
--- NOTE | 2017-01-19 19:01 | HHI.DS ---
Discharge Summary Admission Date Jan 17, 2017 at 01:19 Admitting Diagnosis ACUTE APPENDICITIS Procedures Laparoscopic appendectomy 01/17/17 Brief History Admitted with acute appendicitis, underwent above named procedure 01/17 CBC/BMP: 01/18/17 0338 01/18/17 0338 Significant Findings Laboratory Tests Test 2 201/17/17 01/18/17 23:30 00:50 02:50 03:38 Mean Corpuscular Hemoglobin 26.2 PG (27.0-34.0) Mean Corpuscular Hemoglobin 31.9 % Concent (32.0-36.0) Neutrophils (%) (Auto) 73.0 % 81.1 % (16.0-70.0) (16.0-70.0) Monocytes (%) (Auto) 8.9 % (0.0-8.0) 8.9 % (0.0-8.0) Estimat Glomerular Filtration 77 ML/MIN (>89) Rate Random Glucose 124 MG/DL 117 MG/DL (74-106) (74-106) Creatine Kinase MB LESS THAN 0.5 NG/ML (0.5-3.6) Troponin I LESS THAN 0.02 NG/ML (0.02-0.05) Urine Protein 30 mg/dL (NEG-TRACE) Urine Hyaline Casts 3-5 /lpf (RARE) Urine Mucus FEW /lpf (OCC) Lactic Acid Level 2.9 mmol/L (0.4-2.0) Hemoglobin 11.5 GM/DL (11.6-15.3) Hematocrit 34.3 % (35.0-46.0) Lymphocytes # (Auto) 0.8 TH/MM3 (1.0-4.8) Chloride Level 114 MEQ/L (98-107) Calcium Level 8.0 MG/DL (8.5-10.1) Hospital Course Pt in [facility] first day postop due to low grade sepsis; resolved quickly after appendectomy and antibiotics. Garcia d/c'd on POD #1 and diet started. Pt. had multiple BM's by POD #2 and is tolerating regular diet. No fevers; CANDIDA still with considerable output. Pt Condition on Discharge: Good Discharge Disposition: Discharge Home Discharge Instructions DIET: Follow Instructions for: As Tolerated, No Restrictions Activities you can perform: Shower Only-No Bath Activities to Avoid: Strenuous Activity Ced Mcgill MD Jan 19, 2017 19:01
[2017-01-19] MEDS ORDERED: HYDR-3580 PO (19:03)
[2017-01-19] MEDS ORDERED: LEVA500T PO (19:04)
[2017-01-19] MEDS: AMOXICILLIN/CLAVULANATE K 875 MG TAB PO SCH (20:24)
[2017-01-20] VITALS: BP 134/72; PULSE 102; RESP 20; TEMP 98.8; O2SAT 95
[2017-01-20] MEDS: SODIUM CHLORIDE 0.9% FLUSH 5 ML FLUSH IVF SCH (07:47)
[2017-01-20] MEDS: KETOROLAC TROMETHAMINE 30 MG/ML (IVP) VIAL IVP PRN (07:47)
[2017-01-20] MEDS: AMOXICILLIN/CLAVULANATE K 875 MG TAB PO SCH (07:47)
[2017-01-20 08:00] VITALS: BP 145/75; PULSE 94; RESP 17; TEMP 97.2; O2SAT 97
[2017-01-20 12:00] VITALS: BP 137/78; PULSE 94; RESP 17; TEMP 98.7; O2SAT 96
[2017-01-20] MEDS: ENOXAPARIN SODIUM 40 MG/0.4 ML SYRINGE SQ SCH (12:13)
[2017-01-20] MEDS: PANTOPRAZOLE SOD 40 MG DELAYED RELEASE TAB PO SCH (12:13)
[2017-01-20] MEDS: ACETAMINOPHEN/HYDROcodone 325 MG/7.5 MG TAB PO PRN ×2 (12:16→15:59)
[2017-01-20 15:00] VITALS: BP 126/71; PULSE 80; RESP 17; TEMP 97.2; O2SAT 98
--- NOTE | 2017-01-28 21:47 | MP ---
cc: MARTHA BECKER M.D. DATE OF SURGERY 01/17/2017 PROCEDURE Laparoscopic appendectomy. PREOPERATIVE DIAGNOSIS Gangrenous appendicitis. ANESTHESIA General endotracheal. SURGEON Artem ESTIMATED BLOOD LOSS 50 ml. FLUIDS 1500 ml crystalloid. COMPLICATIONS None. DRAINS CANDIDA x1. SPECIMEN Appendix to pathology. FINDINGS Gangrenous but not perforated appendicitis. The patient had a fair amount of inflammatory process in the abdomen with some fluid in the pelvis as well. The patient also had specimen sent for gram stain culture and sensitivity. PROCEDURE IN DETAIL The patient was taken to the operating room and placed on the operating table in the supine position. After an adequate level of general endotracheal anesthesia was achieved the abdomen was prepped and draped in usual fashion. Time-out was taken confirming the correct patient, site and procedure to be performed. Incision was made in the umbilicus and carried through the fascia sharply. The peritoneal cavity was directly visualized. A 12 mm balloon trocar was inserted and the balloon inflated. The patient was placed in Trendelenburg position and a 5 mm 30 degree laparoscope was inserted. The patient was noted to have a large amount of inflammatory process. However, this was not attached to the anterior abdominal wall where the 5-mm trocars were to be placed. A suprapubic 5 mm trocar was placed and entered the abdominal cavity under direct vision uneventfully. A right lower quadrant 5-mm trocar was then placed and this also entered the abdominal cavity under direct vision uneventfully. In the right lower quadrant adhesions were taken down off of the anterior abdominal wall. Irrigation of the abdomen and culture were then taken. The patient was noted to have shaggy adhesions with a fair amount of inflammatory process involving the ileum. This was irrigated and taken down. This allowed for identification of the appendix. The appendix did appear to be intact but was gangrenous. This did not appear to be perforated at this time. The mesoappendix was taken down with the harmonic scalpel and dissection was carried back to the base of the appendix which appeared to be viable. A 0-PDS Endoloop was slipped over the appendix and cinched down at the base. The appendix was divided approximately 1 cm distal to the Endoloop and placed into an EndoCatch device. The appendix was removed via the umbilical port while observing via the right lower quadrant 5-mm trocar site. The specimen was passed off the table. At this point the mesoappendix and appendiceal stump were reexamined and found to be clean and dry. Copious irrigation then ensued and the abdominal cavity including the pelvis were irrigated. The patient was felt to be at risk for developing an abscess and due to the irrigation as well, a Drew-Grant drain was brought out via the right lower quadrant trocar site. The drain was placed along the right gutter and down into the pelvis. The drain was fixed to the skin with a 3-0 nylon suture. At this point insufflation was discontinued and the suprapubic trocar was removed as was the umbilical trocar. The fascia was closed at the umbilicus with 0 Vicryl suture in an interrupted and [id number] fashion. The remaining local anesthetic was injected into the trocar sites and the skin closed at the suprapubic and umbilical trocars sites with 4-0 Vicryl in an interrupted buried fashion. These two sites were dressed with Steri-Strips and the drain dressed with a 4x4. The patient was extubated and taken back to the recovery room in stable condition. She tolerated the procedure well. MD MAURICE Bowden/KEVON /8:58 PM /9:33 PM
== END 2017-01-20 18:15 | disposition home or self-care (01) | DRG 854 ==
LOC: PHED 22:51 → PHEDA 01-17 01:19 → N03B 01-17 05:58 → N07A 01-18 13:48
PROVIDERS: ADMIT Surgery Trauma Surgery; ATTEND Surgery Trauma Surgery
PROC: 0DTJ4ZZ Resection of Appendix, Percutaneous Endoscopic Approach (ICD-10-PCS; principal; 2017-01-17 12:18)
DX: A41.9 Sepsis, unspecified organism (principal); K35.89 Other acute appendicitis
CPT/HCPCS: 51702; 71010; 74176; 80048; 80053; 81001; 82550; 82552; 83605; 83690; 84484; 85025; 85610; 85730; 86850; 86900; 86901; 87015; 87040; 87070; 87077; 87102; 87116; 87186; 87205; 87206; 87641; 88304; 93005; 94150; 94664; 96365; 96375; 96376; J0131; J1100; J1650; J1885; J2250; J2270; J2370; J2405; J2543; J2710; J2765; J3010; J3480; J7030; J7120; J7613

== ENCOUNTER 2018-10-10 10:30 | Inpatient (IN) ==
[2018-10-10] MEDS ORDERED: ceFAZolin 1 GM Premix Inj 1 GM/50 ML PIGGYBACK IV.SIG SCH (12:15)
[2018-10-10] MEDS ORDERED: Metoprolol Tartrate 25 MG Tablet PO ONE (12:15)
[2018-10-10] MEDS ORDERED: Sodium Chlor 0.9% Inj 500 ML IV.CONT ONE (12:15)
[2018-10-10] MEDS ORDERED: Chlorhexidine Gluconate 2% 1 Pack (2 Cloths) TOPICAL ONE (12:15)
[2018-10-10] MEDS: Dextrose 5%/NaCl 0.9% Inj 1,000 ML IV.SIG SCH ×2 (12:22→22:32)
[2018-10-10] MEDS ORDERED: Sugammadex Inj 200 MG/2 ML Vial IV.PUSH ONE (12:41)
[2018-10-10] MEDS ORDERED: Normosol-R pH 7.4 Inj 2,000 ML IV.CONT ONE (13:25)
[2018-10-10] MEDS ORDERED: Lidocaine PF 1% Inj 5 ML Syringe OTHER ONE (13:25)
[2018-10-10] MEDS ORDERED: Potassium Chlor 40 mEq Premix 40 MEQ/100 ML PIGGYBACK IV.SIG PRN (15:47)
[2018-10-10] MEDS ORDERED: Potassium Chlor 20 mEq Premix 20 MEQ/100 ML PIGGYBACK IV.SIG PRN (15:47)
[2018-10-10] MEDS ORDERED: fentaNYL Citrate Inj 100 MCG/2 ML Ampul ONE (15:49)
[2018-10-10] MEDS ORDERED: Naloxone Inj 0.4 MG/ML Vial IV.PUSH PRN (15:53)
[2018-10-10] MEDS ORDERED: Morphine Inj 30 MG/30 ML PCA.VIAL PCA PRN (15:53)
[2018-10-10] MEDS ORDERED: *morphine SULFATE 10 MG/ML PERIprocedure ONLY ONE (15:56)
[2018-10-10] MEDS: KCL 20 mEq/D5W/LR Inj 1,000 ML IV.CONT PRN ×2 (16:30→22:34)
[2018-10-10 17:58] LABS: Baso % (Auto) 0.1 % (0.0-2.0); Eos % (Auto) 0.1 % (0.0-4.0); Hematocrit 40.2 % (35.0-46.0); Hemoglobin 13.9 gm/dL (11.6-15.3); Lymph # (Auto) 1.4 th/mm3 (1.0-4.8); Lymph % (Auto) 6.9 % (9.0-44.0); Mean Corpuscular HGB Conc 34.6 % (32.0-36.0); Mean Corpuscular Hemoglobin 30.3 pg (27.0-34.0); Mean Corpuscular Volume 87.6 fL (80.0-100.0); Mean Platelet Volume 7.5 fL (7.0-11.0); Mono % (Auto) 4.8 % (0.0-8.0); Neut # (Auto) 18.3 th/mm3 (1.8-7.7); Neut % (Auto) 88.1 % (16.0-70.0); Platelet Count 315 th/mm3 (150-450); Red Cell Distribution Width 12.9 % (11.6-17.2); White Blood Count 20.7 th/mm3 (4.0-11.0)
[2018-10-10 18:15] LABS: Calcium 8.1 mg/dL (8.5-10.1); Carbon Dioxide 26.9 meq/L (21.0-32.0); Potassium 3.5 meq/L (3.5-5.1)
--- NOTE | 2018-10-10 18:40 | MP ---
cc: Yonny Vanegas MD, John T MD Chudasama, Prady M MD DATE OF OPERATION: 10/10/2018 PREOPERATIVE DIAGNOSIS: Multiple colonic polyps. POSTOPERATIVE DIAGNOSES: Multiple colonic polyps. PROCEDURE PERFORMED: Total abdominal colectomy, ileocolic anastomosis. ANESTHESIA: General endotracheal. SURGEON: Yonny Vanegas MD CHILD NEUROLOGIST: Sixto Rojas MD ESTIMATED BLOOD LOSS: 100 mL. OPERATING TIME: 1 hour and 35 minutes. OPERATIVE FINDINGS: This patient has been known to me for many years. Her father had a carcinoma of the colon at a young age, and she has had multiple polyps over the last 20 years or so. Over the last 2-3 years, she has developed 20-30 polyps at a time when I had done her colonoscopy over the last 3 times. Her last colonoscopy was done in April, at which time she had 20 or 30 polyps, all of which have been mostly small; some of which had been serrated adenomas in the past, including flat adenomas. For this reason, we talked about genetic testing as well as a subtotal colectomy with ileosigmoid or ileorectal anastomosis. After much consideration, she decided on the subtotal colectomy and decided against genetic testing. At surgery, exploration of the abdominal cavity revealed that she is status post hysterectomy and bilateral salpingo-oophorectomy as well as cholecystectomy. A subtotal colectomy was done with an ileosigmoid anastomosis with the Ethicon PHAN 55 stapling device. The remainder of the abdominal exploration including the liver, small bowel and colon was all palpably normal. OPERATIVE TECHNIQUE: The patient was placed on the table in the supine position. After adequate general endotracheal anesthesia, the abdomen and perineum were prepped and draped in the usual manner. Transverse infraumbilical skin incision was made and carried down through subcutaneous tissue and the rectus muscles and the peritoneal cavity was entered with the above-mentioned findings. Our attention was turned to the cecum and the ascending colon was mobilized along its peritoneal reflection. The hepatic flexure was stuck densely into the previous cholecystectomy fossa and this was dissected free with electrocautery. Next, our attention was turned to the sigmoid colon, which was also stuck in the pelvis, especially along the right side, to her previous site of her adnexa. This was dissected free with electrocautery. There was a loop in the sigmoid colon also stuck to the left adnexal region and this was freed up as well. The sigmoid colon, descending colon was mobilized up to the splenic flexure. The adhesions next to the splenic flexure were divided as well. There was a small tear in the undersurface of the spleen and it was treated with electrocautery and fibrillar hemostatic agent. The splenic flexure was mobilized and the transverse colon was likewise mobilized, mobilizing the omentum from the transverse colon entering the lesser sac. Our attention was turned to the sigmoid colon and we decided to leave the lower sigmoid colon intact. Therefore, we left the inferior mesenteric artery intact and divided the sigmoid vessels, successfully clamped cutting, and ligating the sigmoid vessels and then the left colic vessels. Once this was done, we turned our attention to the ileocolic vessels and they were doubly clamped, cut and doubly ligated with 0 Vicryl ligature and then the right branches of the middle colic and the middle colic vessels were clamped, cut, and ligated with 0 Vicryl ligature and the lower sigmoid colon was cleared of its mesentery and epiploica and then divided with an Ethicon PHAN 55 stapling device. The terminal ileum was divided between 2 Rani clamps and the specimen was removed from the table. It was later opened and multiple small 2 mm polyps were seen throughout the colon as well as one 1 cm polyp which was sessile in nature in the ascending colon. Our attention was then turned to the anastomosis and a functional end-to-end anastomosis was done with the Ethicon PHAN 55 stapling device along the antimesenteric border of the lower sigmoid just above the rectum and the ileum and then the colotomy was closed with a TX 60 blue staple height stapling device. The bowel was replaced in the abdominal cavity in an diet clerk manner. Hemostasis was maintained throughout with electrocautery and ligature. The abdominal cavity was irrigated thoroughly with 3 liters of saline solution, aspirated dry. A drain was placed through a separate stab wound in the right lower quadrant and placed down in the cul-de-sac, anterior to the rectum. The posterior rectal space was not developed or dissected for this procedure. Next, the small bowel was replaced in an diet clerk manner as mentioned and the omentum was placed on the left colic gutter and over the small bowel in the cul-de-sac over the area of the anastomosis. Next, the abdominal layers were closed using a double-stranded #1 PDS for the posterior rectus sheath, and rectus muscle layer was irrigated with a liter of saline solution, aspirated dry. Then, the anterior rectus sheath was closed with a double stranded #1 PDS, as well as subcutaneous tissue was irrigated thoroughly with about a liter to a liter and a half of saline solution, aspirated dry, and the skin was closed with skin mukesh because of her obesity. The dressings were applied. Sponge, needle and instrument counts were reported as correct. The estimated blood loss was 100 mL. The patient tolerated the procedure well and left the operating room in good condition. Operating time was 1 hour and 35 minutes. MD ELIDIA Alfredo/quita , 05:24 PM , 05:33 PM
[2018-10-10] MEDS ORDERED: Zolpidem Tartrate 5 MG Tablet PO PRN (21:00)
[2018-10-10] MEDS: ceFAZolin 2 GM Premix Inj 2 GM/50 ML PIGGYBACK IV.SIG SCH (22:32)
[2018-10-11] MEDS: KCL 20 mEq/D5W/LR Inj 1,000 ML IV.CONT PRN (04:27)
[2018-10-11 04:36] LABS: Baso % (Auto) 0.2 % (0.0-2.0); Eos % (Auto) 0.1 % (0.0-4.0); Hematocrit 36.7 % (35.0-46.0); Hemoglobin 12.7 gm/dL (11.6-15.3); Lymph # (Auto) 0.6 th/mm3 (1.0-4.8); Lymph % (Auto) 4.6 % (9.0-44.0); Mean Corpuscular HGB Conc 34.7 % (32.0-36.0); Mean Corpuscular Hemoglobin 29.8 pg (27.0-34.0); Mean Platelet Volume 7.6 fL (7.0-11.0); Mono # (Auto) 1.2 th/mm3 (0.0-0.9); Mono % (Auto) 8.8 % (0.0-8.0); Neut # (Auto) 12.1 th/mm3 (1.8-7.7); Neut % (Auto) 86.3 % (16.0-70.0); Platelet Count 240 th/mm3 (150-450); Red Blood Count 4.27 mil/mm3 (4.00-5.30); Red Cell Distribution Width 12.7 % (11.6-17.2)
[2018-10-11 05:03] LABS: Anion Gap 10 meq/L (5-15); Blood Urea Nitrogen 9 mg/dL (7-18); Calcium 8.1 mg/dL (8.5-10.1); Carbon Dioxide 24.2 meq/L (21.0-32.0); Chloride 110 meq/L (98-107); Glomerular Filtration Rate Greater Than 89 mL/min (>89); Glucose,Random 184 mg/dL (74-106); Potassium 3.7 meq/L (3.5-5.1); Sodium 144 meq/L (136-145)
[2018-10-11] MEDS: ceFAZolin 2 GM Premix Inj 2 GM/50 ML PIGGYBACK IV.SIG SCH ×2 (05:35→16:10)
[2018-10-11] MEDS: Dextrose 5%/NaCl 0.9% Inj 1,000 ML IV.SIG SCH ×2 (05:35→13:30)
[2018-10-11] MEDS: Pantoprazole Inj 40 MG Vial IV.PUSH SCH (09:01)
--- NOTE | 2018-10-11 14:46 | ECG ---
Date Performed: 10/10/2018 Time Performed: 12:10:32 PTAGE: 63 years EKG: Sinus rhythm NORMAL ECG Since the PREVIOUS TRACING , no significant change noted PREVIOUS TRACIN01/17/2017 00.02 DOCTOR: Crystal Redman Interpretating Date/Time 10/11/2018 14:34:17
[2018-10-11] MEDS ORDERED: KCL 20 mEq/D5W/LR Inj 1,000 ML IV.CONT SCH (17:00)
--- NOTE | 2018-10-11 17:12 | P.PNCS ---
Subjective Colorectal Surgery Post Op Day #: 1 Interval history: No N or V. No BMs. Pain controlled Objective Result Diagrams: 10/11/18 04:00 10/11/18 04:00 Objective Remarks: Abd: soft,flat,dressing dry Assessment and Plan - Plan Stable. D/C tele D/C REFUND SPECIALIST in AM D/C kee in AM Transfer to [address] [place] [address]. D/C dressing in AM
[2018-10-11] MEDS: Heparin - SQ 10,000 UNITS/ML Vial SQ SCH (21:05)
[2018-10-12] MEDS ORDERED: Morphine Inj 30 MG/30 ML PCA.VIAL PCA PRN (08:00)
[2018-10-12 08:02] LABS: Baso # (Auto) 0.1 th/mm3 (0.0-0.2); Baso % (Auto) 0.4 % (0.0-2.0); Eos % (Auto) 0.2 % (0.0-4.0); Hematocrit 35.2 % (35.0-46.0); Lymph # (Auto) 1.3 th/mm3 (1.0-4.8); Lymph % (Auto) 8.6 % (9.0-44.0); Mean Corpuscular HGB Conc 34.1 % (32.0-36.0); Mean Corpuscular Hemoglobin 29.7 pg (27.0-34.0); Mean Corpuscular Volume 87.3 fL (80.0-100.0); Mean Platelet Volume 7.8 fL (7.0-11.0); Mono # (Auto) 1.3 th/mm3 (0.0-0.9); Mono % (Auto) 8.9 % (0.0-8.0); Neut # (Auto) 12.2 th/mm3 (1.8-7.7); Neut % (Auto) 81.9 % (16.0-70.0); Platelet Count 217 th/mm3 (150-450); Red Blood Count 4.03 mil/mm3 (4.00-5.30); Red Cell Distribution Width 13.3 % (11.6-17.2); White Blood Count 14.9 th/mm3 (4.0-11.0)
[2018-10-12 08:24] LABS: Calcium 8.4 mg/dL (8.5-10.1); Carbon Dioxide 26.2 meq/L (21.0-32.0); Potassium 4.1 meq/L (3.5-5.1)
[2018-10-12] MEDS: Pantoprazole Inj 40 MG Vial IV.PUSH SCH (09:01)
[2018-10-12] MEDS: Heparin - SQ 10,000 UNITS/ML Vial SQ SCH ×2 (09:01→21:23)
--- NOTE | 2018-10-12 10:30 | P.PNCS ---
Subjective Colorectal Surgery Post Op Day #: 2 Interval history: afebrile, VSS UO good jose PO Objective Result Diagrams: 10/12/18 07:36 10/12/18 07:36 Objective Remarks: Abd: soft,flat, wound dry, CANDIDA min Assessment and Plan - Plan D/C SR. MANAGER CORPORATE COMMUNICATIONS in AM D/C kee in AM D/C dressing adv diet
[2018-10-13 08:22] VITALS: BP 118/64; PULSE 110; TEMP 98; O2SAT 96
[2018-10-13] MEDS: Heparin - SQ 10,000 UNITS/ML Vial SQ SCH (08:44)
--- NOTE | 2018-10-13 11:05 | P.PNCS ---
Subjective Colorectal Surgery Post Op Day #: 3 Interval history: afebrile, VSS UO good jose PO Objective Result Diagrams: 10/12/18 07:36 10/12/18 07:36 Objective Remarks: Abd: soft,flat, wound dry, CANDIDA mod serous Assessment and Plan - Plan D/C dressing adv diet DC IVF DC plans
[2018-10-13] MEDS: Pantoprazole Inj 40 MG Vial IV.PUSH SCH (11:54)
[2018-10-13 11:55] VITALS: RESP 18
--- NOTE | 2018-11-01 16:03 | MD ---
cc: Yonny Vanegas MD, Dr. DATE OF DISCHARGE: 10/13/2018 ADMITTING DIAGNOSIS: Multiple colonic polyps. DISCHARGE DIAGNOSIS: Multiple colonic polyps. OPERATIVE PROCEDURE: Total abdominal colectomy with ileocolic anastomosis. HISTORY: This patient has been known to me for many years. Her father had a carcinoma of the colon at a young age, and she has had multiple polyps of the last 20 years or so. Over the last 2-3 years she has developed 20-30 polyps at a time when I have done her colonoscopies over the last 3 times. Her last colonoscopy was done in April, at which time she had 20-30 polyps, all of which have been mostly small, some of which have been serrated adenomas in the past including flat adenomas. For this reason, we talked about genetic testing as well as a subtotal colectomy with an ileosigmoid or ileorectal anastomosis. After much consideration, she decided on the subtotal colectomy and decided against genetic testing. LABORATORY DATA: The pathology report on the removed specimen showed a 65 cm in length segment of colon including the cecum and a portion of the terminal ileum. The colonic lumen had multiple firm weber polyps ranging from 0.1 cm - 2 cm in greatest dimension involving an area 3 cm distal to the ileocecal valve to 8 cm from the distal end of the resection. The colon showed multiple tubular adenomas on microscopic examination. There were 12 pericolonic lymph nodes with focal anthracosis. HOSPITAL COURSE: The patient was admitted to the hospital on 10/10/2018, underwent a subtotal colectomy and ileosigmoid anastomosis. On the first postoperative day, she was started on a clear liquid diet; on the second postoperative day she was started on full liquid diet; on the third postoperative day she was started on a regular diet and she was discharged from the hospital on the third postoperative day. She is instructed to do no driving for 2 weeks, do no heavy lifting over 10 pounds for 6 weeks and to call me with any problems. She was instructed to followup with me in the office in 2 weeks' time. MD ELIDIA Alfredo/winston , 03:48 PM , 03:54 PM
== END 2018-10-13 14:16 | disposition home or self-care (01) | DRG 331 ==
LOC: HSDI 11:32 → HCPC 17:57 → N07 10-11 19:21
PROVIDERS: ADMIT Colon & Rectal Surgery; ATTEND Colon & Rectal Surgery
CPT/HCPCS: 80048; 85025; 86850; 86900; 86901; 88307; 88309; 93005; 94150; C9113; J0131; J0690; J1100; J1644; J1940; J2250; J2270; J2405; J2550; J2704; J2765; J3010; J3480; J7120; J8501